=== PATIENT | female | born 1970 | race Caucasian/White ===

== ENCOUNTER 2023-05-06 13:31 | Emergency (ER) | payer OTHER, SELFPAY ==
[2023-05-06] VITALS (20 sets, daily range): BP systolic 95–125; BP diastolic 67–83; PULSE 85–129; RESP 10–30; TEMP 37; O2SAT 93–98; BMI 34.5
--- NOTE | 2023-05-06 14:01 | CT_ITS ---
[address] [address] Patient Name: ARABELLA HAUSER MRN: [id number] date: 1970 Sex: F Assigned Patient Location: ER Current Patient Location: Accession/Order Number: [id number] Exam Date: 05/06/2023 14:30 Report Date: 05/06/2023 15:14 At the request of: GEORGIE ALLAN Procedure: CT abdomen pelvis w con EXAMINATION: CT abdomen pelvis w con HISTORY: generalized abdominal pain ; bilateral lower quadrant pain COMPARISON: No relevant comparison available. TECHNIQUE: Axial, Coronal, and Sagittal images were obtained without and/or with IV contrast as indicated by examination type. Dose reduction techniques were achieved by using automated exposure control and/or adjustment of mA and/or kV according to patient size and/or use of iterative reconstruction technique. FINDINGS: LUNG BASES: No visible pulmonary or pleural disease. LIVER: No enlargement, atrophy, suspicious density, or significant focal lesion. BILIARY: No dilatation or calcification. PANCREAS: No lesion, fluid collection, or abnormal duct dilatation. SPLEEN: No enlargement or focal lesion. ADRENALS: No mass or enlargement. KIDNEYS: No mass, obstruction, or calcification. BOWEL/MESENTERY: No visible mass, obstruction, or bowel wall thickening. Normal appendix. AORTA/VASCULAR: No aneurysm or dissection. RETROPERITONEUM: No mass or adenopathy. LYMPH NODES: No adenopathy. URINARY BLADDER: No visible focal wall thickening, lesion, or calculus. PELVIC ORGANS: 11.1 cm cystic fluid collection with thin rim of surrounding soft tissue within anterior pelvis displacing the uterus, suspected to be ovarian in origin. Adjacent 4.7 cm simple appearing structure, also likely arising from the ovary. Grossly unremarkable uterus. ABDOMINAL WALL: No mass or hernia. BONES: No bony lesion or fracture. OTHER: Negative. CT/CT abdomen pelvis w con IMPRESSION: 1. Large predominantly cystic anterior pelvic structures suspected to represent a ovarian large cyst along with an adjacent large ovarian cyst. Ultrasound evaluation recommended. 2. Normal appearance of the bowel and appendix. Electronically authenticated by: DAMIEN DENIS Date: 05/06/2023 15:14
--- NOTE | 2023-05-06 14:01 | ECG_ITS ---
[facility] Test Date: 2023-05-06 Pat Name: ARABELLA HAUSER Department: Room: - Gender: Female [employer]: : 1970 Requested By: Order Number: [id number] Reading MD: JOSE NARAYAN Measurements Intervals [place] Rate: 77 P: 44 [place]: 146 QRS: 8 QRSD: 82 T: 22 QT: 344 QTc: 376 Interpretive Statements 1100 Sinus rhythm 9110 normal ECG No previous ECG available for comparison Electronically Signed On 05-08-2023 19:52:14 EST by JOSE NARAYAN
--- NOTE | 2023-05-06 14:03 | ED.ABDPAIN1 ---
HPI - Abdominal Pain General Chief Complaint: Abdominal Pain Stated Complaint: ABDOMINAL PAIN Time Seen by Provider: 05/06/23 13:48 Source: patient Mode of arrival: walk-in History of Present Illness HPI narrative: patient developed left lower abdominal pain 2 days ago and since then the pain has become present across the anterior abdomen. No vomiting but has some nausea. No flank pain or urinary symptoms. No fever or chills. No skin rash. Her gave her a laxative but it didn't do much but the pain intensified. PSHx - csection. She still has her GB and appendix and she has never been diagnosed with IBS, Crohn's or UC. Related Data Home Medications Medication Instructions Recorded Confirmed albuterol 90 mcg/actuation aerosol mcg inhalation 05/06/23 inhaler fluticasone propionate 100 1 inh inhalation BID 05/06/23 05/06/23 mcg/actuation blister powder for inhalation (Flovent Diskus) Previous Rx's Medication Instructions Recorded ciprofloxacin HCl 500 mg tablet 500 mg PO BID #13 tabs 05/06/23 (Cipro) hydrocodone 5 mg-acetaminophen 325 1 tab PO Q6H PRN pain #14 tabs 05/06/23 mg tablet Allergies Allergy/AdvReac Type Severity Reaction Status Date / Time No Known Drug Allergies Allergy Verified 05/06/23 13:35 PFSH PFSH Social History Smoking status: Current every day smoker Exam Narrative Exam Narrative: Nurses notes and vital signs reviewed and patient is not hypoxic. afebrile General: Well-appearing and in no apparent distress. Skin: Warm, dry, no pallor noted. No rash. Eye: Pupils are equal, round and EOMI. No scleral icterus. Cardiovascular: Regular Rate and Rhythm without murmur, gallop or rub. Respiratory: No accessory muscle use or respiratory distress. Lungs are clear to auscultation, no wheezing, rales or rhonchi Chest Wall: no tenderness Back: No CVA tenderness Musculoskeletal: normal ROM GI: Abdomen is soft, non-distended. Normal bowel sounds. No masses appreciated. Bilateral lower abdominal tenderness to palpation. No rebound, guarding, or rigidity noted. Neurological: A&O x4. No cranial nerve dysfunction observed. No truncal ataxia. Moves all extremities. Sensation intact. Psychiatric: Cooperative and interactive. Normal mood and affect. Constitutional Vital Signs, click to edit/add: Last Vital Signs Temp 98.6 F 05/06/23 13:35 Pulse 102 H 05/06/23 17:20 Resp 23 05/06/23 17:20 BP 106/67 05/06/23 17:18 Pulse Ox 93 L 05/06/23 17:20 O2 Del Method Room Air 05/06/23 13:35 Course Vital Signs Vital signs: Vital Signs Temperature 98.6 F 05/06/23 13:35 Pulse Rate 129 H 05/06/23 13:35 Respiratory Rate 18 05/06/23 13:35 Blood Pressure 125/83 05/06/23 13:35 Pulse Oximetry 98 05/06/23 13:35 Oxygen Delivery Method Room Air 05/06/23 13:35 Temperature 98.6 F 05/06/23 13:35 Pulse Rate 102 H 05/06/23 17:20 Respiratory Rate 23 05/06/23 17:20 Blood Pressure 106/67 05/06/23 17:18 Pulse Oximetry 93 L 05/06/23 17:20 Oxygen Delivery Method Room Air 05/06/23 13:35 MDM - Abdominal Pain MDM Narrative Medical decision making narrative: peripheral IV established and blood drawn and sent for testing. Urine ordered to be obtained for testing as well. EKG obtained. The patient was ordered to undergo CT scanning of the abdomen pelvis with IV contrast. She received IV Toradol and IV Zofran along with a liter of NS IVF. WBC 16k. Normal electrolytes, renal function and LFTs. UA with leuk est, bacteria and WBCs She was ordered to receive IV Cipro. CT revealed large anterior pelvic structure presumed to be ovarian cyst - US Pelvis was recommended. US revealed two large cystic structures. See detailed reports below. I discussed the findings with the vocational guidance counselor [employer]PERATING TABLE [employer]SEMBLER, Dr Pierre, and we discussed the patient's case. She recommended close but non-emergent follow up with Dr Kennedy for further assessment, probably cyst removal. She agreed with the use of Cipro to control the patient's UTI. The patient and I discussed the findings, diagnosis and plan for treatment and follow up. Discharged with prescriptions for Coldiron and Cipro. Lab Data Attestation: I reviewed the patient's lab results. Labs: Lab Results 05/06/23 05/06/23 Range/Units 13:34 14:24 WBC 16.4 H (4.0-11.0) 10^3/uL RBC 4.77 (4.20-5.40) 10^6/uL Hgb 14.2 (12.0-16.0) g/dL Hct 44.4 (36.0-48.0) % MCV 93.1 (81.0-99.0) fL MCH 29.8 (26.7-34.0) pg MCHC 32.0 (29.9-35.2) g/dL RDW 12.9 (11.0-15.0) % Plt Count 292 (150-450) 10^3/uL MPV 10.2 (9.5-13.5) fL Neut % (Auto) 80.6 H (43.0-75.0) % Lymph % (Auto) 11.4 L (20.5-60.0) % [place] % (Auto) 6.3 (1.7-12.0) % Eos % (Auto) 0.9 (0.9-7.0) % Baso % (Auto) 0.4 (0.2-2.0) % Neut # (Auto) 13.3 H (1.4-6.5) 10^3/uL Lymph # (Auto) 1.9 (1.2-3.8) 10^3/uL [place] # (Auto) 1.0 H (0.3-0.8) 10^3/uL Eos # (Auto) 0.2 (0.0-0.7) 10^3/uL Baso # (Auto) 0.1 (0.0-0.1) 10^3/uL Abs Immat Gran (auto) 0.06 H (0.00-0.03) 10^3/uL Imm/Tot Granulo (auto) 0.4 (0.0-0.5) % Sodium 139 (136-145) mmol/L Potassium 3.5 (3.5-5.1) mmol/L Chloride 102 (98-107) mmol/L Carbon Dioxide 25.6 (21.0-32.0) mmol/L Anion Gap 14.9 BUN 11.0 (7.0-18.0) mg/dL Creatinine 0.80 (0.55-1.02) mg/dL Est GFR ( Amer) >60 (>=60) Est GFR (Non-Af Amer) >60 (>=60) BUN/Creatinine Ratio 13.8 Glucose 86 (74-106) mg/dL Calcium 9.3 (8.5-10.1) mg/dL Total Bilirubin 0.9 (0.2-1.0) mg/dL AST 7 L (15-37) U/L ALT 7 L (14-59) U/L Alkaline Phosphatase 70 (46-116) U/L Total Protein 7.5 (6.4-8.2) g/dL Albumin 3.7 (3.4-5.0) g/dL Globulin 3.8 g/dL Albumin/Globulin Ratio 1.0 Lipase 22.0 (16.0-77.0) U/L Urine Color Lt. yellow (YELLOW) Urine Clarity Sl cloudy (CLEAR) Urine pH 5.5 (5.0-9.0) Ur Specific [place] >=1.030 A (1.005-1.025) Urine Protein Negative (NEG/TRACE) mg/dL Urine Glucose (UA) Negative (NEGATIVE) mg/dL Urine Ketones 40 A (NEGATIVE) mg/dL Urine Occult Blood Trace-i (NEGATIVE) Urine Nitrite Negative (NEGATIVE) Urine Bilirubin Small A (NEGATIVE) Urine Urobilinogen 0.2 (0.2-1.0) EU/dL Ur Leukocyte Esterase Moderate A (NEGATIVE) Urine RBC 2-5 A (0-2) #/HPF Urine WBC 50-75 A (NONE SEEN) #/HPF Ur Squamous Epith Cells Moderate A (NONE/RARE) #/LPF Urine Crystals None seen (None Seen) #/HPF Urine Bacteria Large A (NONE SEEN) #/HPF Urine Casts None seen (NONE SEEN) #/LPF Urine Mucus Small A (NONE SEEN) Ur Culture Indicated? Yes Imaging Data CT scan - abdomen: Attestation: I have reviewed the pertinent imaging results. Radiologist's impression: Patient Name: ARABELLA HAUSER MRN: [id number] date: 1970 Sex: F Assigned Patient Location: ER Current Patient Location: ER Accession/Order Number: [id number] Exam Date: 05/06/2023 14:30 Report Date: 05/06/2023 15:14 At the request of: GEORGIE ALLAN Procedure: CT abdomen pelvis w con EXAMINATION: CT abdomen pelvis w con HISTORY: generalized abdominal pain ; bilateral lower quadrant pain COMPARISON: No relevant comparison available. TECHNIQUE: Axial, Coronal, and Sagittal images were obtained without and/or with IV contrast as indicated by examination type. Dose reduction techniques were achieved by using automated exposure control and/or adjustment of mA and/or kV according to patient size and/or use of iterative reconstruction technique. FINDINGS: LUNG BASES: No visible pulmonary or pleural disease. LIVER: No enlargement, atrophy, suspicious density, or significant focal lesion. BILIARY: No dilatation or calcification. PANCREAS: No lesion, fluid collection, or abnormal duct dilatation. SPLEEN: No enlargement or focal lesion. ADRENALS: No mass or enlargement. KIDNEYS: No mass, obstruction, or calcification. BOWEL/MESENTERY: No visible mass, obstruction, or bowel wall thickening. Normal appendix. AORTA/VASCULAR: No aneurysm or dissection. RETROPERITONEUM: No mass or adenopathy. LYMPH NODES: No adenopathy. URINARY BLADDER: No visible focal wall thickening, lesion, or calculus. PELVIC ORGANS: 11.1 cm cystic fluid collection with thin rim of surrounding soft tissue within anterior pelvis displacing the uterus, suspected to be ovarian in origin. Adjacent 4.7 cm simple appearing structure, also likely arising from the ovary. Grossly unremarkable uterus. ABDOMINAL WALL: No mass or hernia. BONES: No bony lesion or fracture. OTHER: Negative. IMPRESSION: 1. Large predominantly cystic anterior pelvic structures suspected to represent a ovarian large cyst along with an adjacent large ovarian cyst. Ultrasound evaluation recommended. 2. Normal appearance of the bowel and appendix. Electronically authenticated by: DAMIEN DENIS Date: 05/06/2023 15:14 US Pelvis: Attestation: I have reviewed the pertinent imaging results. Radiologist's impression: Patient Name: ARABELLA HAUSER MRN: [id number] date: 1970 Sex: F Assigned Patient Location: ER Current Patient Location: ER Accession/Order Number: [id number] Exam Date: 05/06/2023 15:40 Report Date: 05/06/2023 16:49 At the request of: GEORGIE ALLAN Procedure: US pelvis transvaginal EXAMINATION: US pelvis transvaginal TECHNIQUE: Transvaginal sonography. Grayscale and color flow Doppler imaging. HISTORY: large right ovarian mass. COMPARISON: CT scan 05/06/2023 FINDINGS: Uterus and cervix: Uterus measures 7.3 x 5.3 x 3.5 cm. No focal abnormality. Endometrium: Thickness measures 7.4mm. Endometrial appears grossly unremarkable. Neither ovary is confidently identified. Adnexa: Anterior and cephalad to the uterus there is a 11.6 cm mostly anechoic cystic mass with an adjacent 4.9 cm anechoic cystic mass. Cul-de-sac: Normal, non or minimal free fluid likely physiologic. IMPRESSION: Large mostly anechoic cystic structures anterior and cephalad to the uterus without discrete visualization of normal ovarian tissue. Question large ovarian cyst with or without hydrosalpinx. Other benign or malignant neoplastic processes cannot be excluded. Torsion cannot be excluded on the basis of this examination. Electronically authenticated by: DIPESH MORENO Date: 05/06/2023 16:49 ECG Data Attestation: I personally reviewed and interpreted this ECG as follows: Interpretation: EKG interpretation: Emergency Department physician interpretation. Normal sinus rhythm at 77bpm. Normal axis, normal intervals and no ST segment elevation or depression. Normal EKG. Discharge Plan Discharge Chief Complaint: Abdominal Pain Clinical Impression: Ovarian cyst, Abdominal pain Patient Disposition: Home, Self-Care Time of Disposition Decision: 17:19 Prescriptions / Home Meds: New hydrocodone-acetaminophen 5-325 mg tablet 1 tab PO Q6H PRN (Reason: pain) Qty: 14 0RF ciprofloxacin HCl [Cipro] 500 mg tablet 500 mg PO BID Qty: 13 0RF No Action Flovent Diskus 100 mcg/actuation blister with device 1 inh inhalation BID albuterol 90 mcg/actuation aerosol inhalation Instructions: Ovarian Cyst (ED), Abdominal Pain (ED) Stand Alone Forms: Portal Instructions Referrals: Hakeem Kennedy DO [Physician] - As soon as possible Discharge Date/Time: 05/06/23 17:38
[2023-05-06 14:08] LABS: Basophils Absolute Auto 0.1 10^3/uL (0.0-0.1); Basophils Percent Auto 0.4 % (0.2-2.0); Eosinophils Absolute Auto 0.2 10^3/uL (0.0-0.7); Eosinophils Percent Auto 0.9 % (0.9-7.0); Hematocrit 44.4 % (36.0-48.0); Hemoglobin 14.2 g/dL (12.0-16.0); Immature Granulocytes Abs Auto 0.06 10^3/uL (0.00-0.03); Immature Granulocytes Pct Auto 0.4 % (0.0-0.5); Lymphocytes Absolute Auto 1.9 10^3/uL (1.2-3.8); Lymphocytes Percent Auto 11.4 % (20.5-60.0); Mean Corpuscular Hemoglobin 29.8 pg (26.7-34.0); Mean Corpuscular Volume 93.1 fL (81.0-99.0); Mean Platelet Volume 10.2 fL (9.5-13.5); Monocytes Percent Auto 6.3 % (1.7-12.0); Neutrophils Absolute Auto 13.3 10^3/uL (1.4-6.5); Neutrophils Percent Auto 80.6 % (43.0-75.0); Platelet Count 292 10^3/uL (150-450); Red Blood Count 4.77 10^6/uL (4.20-5.40); Red Cell Distribution Width 12.9 % (11.0-15.0); White Blood Count 16.4 10^3/uL (4.0-11.0)
[2023-05-06] MEDS: KETOROLAC TROMETHAMINE 30 MG/ML VIAL IVP (14:18)
[2023-05-06] MEDS: ONDANSETRON PF 4 MG/2 ML VIAL IV (14:18)
[2023-05-06] MEDS: 0.9 % SODIUM CHLORIDE 1,000 ML 999 ML IV (14:18)
[2023-05-06 14:22] LABS: Alanine Aminotransferase 7 U/L (14-59); Albumin Level 3.7 g/dL (3.4-5.0); Alkaline Phosphatase 70 U/L (46-116); Anion Gap 14.9; Aspartate Amino Transferase 7 U/L (15-37); BUN Creatinine Ratio 13.8; Bilirubin Total 0.9 mg/dL (0.2-1.0); Calcium 9.3 mg/dL (8.5-10.1); Carbon Dioxide 25.6 mmol/L (21.0-32.0); Chloride 102 mmol/L (98-107); Estimated GFR (African America >60 (>=60); Estimated GFR (Non-African Ame >60 (>=60); Globulin 3.8 g/dL; Glucose 86 mg/dL (74-106); Potassium 3.5 mmol/L (3.5-5.1); Sodium 139 mmol/L (136-145); Total Protein 7.5 g/dL (6.4-8.2)
[2023-05-06 14:40] LABS: Bilirubin Urine SMALL (NEGATIVE); Blood Urine TRACE-I (NEGATIVE); Clarity Urine SL CLOUDY (CLEAR); Color Urine LT. YELLOW (YELLOW); Glucose Urine UA NEGATIVE (NEGATIVE); Ketones Urine 40 mg/dL (NEGATIVE); Leukocyte Esterase Urine MODERATE (NEGATIVE); Nitrite Urine NEGATIVE (NEGATIVE); Protein Urine NEGATIVE (NEG/TRACE); Specific Gravity Urine >=1.030 (1.005-1.025); Urobilinogen Urine 0.2 EU/dL (0.2-1.0); pH Urine 5.5 (5.0-9.0)
[2023-05-06 14:45] LABS: Urine Microscopic Indicated YES
[2023-05-06 14:48] LABS: Bacteria Urine LARGE #/HPF (NONE SEEN); Cast Seen? NONE SEEN #/LPF (NONE SEEN); Crystals Seen? None Seen #/HPF (None Seen); Mucus Urine SMALL (NONE SEEN); Squamous Epithelial Cell Urine MODERATE #/LPF (NONE/RARE); Urine Culture Indicated YES; WBC Urine 50-75 #/HPF (NONE SEEN)
--- NOTE | 2023-05-06 15:20 | US_ITS ---
The [address] [address] Patient Name: ARABELLA HASUER MRN: [id number] date: 1970 Sex: F Assigned Patient Location: ER Current Patient Location: Accession/Order Number: [id number] Exam Date: 05/06/2023 15:40 Report Date: 05/06/2023 16:49 At the request of: GEORGIE ALLAN Procedure: US pelvis transvaginal EXAMINATION: US pelvis transvaginal TECHNIQUE: Transvaginal sonography. Grayscale and color flow Doppler imaging. HISTORY: large right ovarian mass. COMPARISON: CT scan 05/06/2023 FINDINGS: Uterus and cervix: Uterus measures 7.3 x 5.3 x 3.5 cm. No focal abnormality. Endometrium: Thickness measures 7.4mm. Endometrial appears grossly unremarkable. Neither ovary is confidently identified. Adnexa: Anterior and cephalad to the uterus there is a 11.6 cm mostly anechoic cystic mass with an adjacent 4.9 cm anechoic cystic mass. Cul-de-sac: Normal, non or minimal free fluid likely physiologic. US/US pelvis transvaginal IMPRESSION: Large mostly anechoic cystic structures anterior and cephalad to the uterus without discrete visualization of normal ovarian tissue. Question large ovarian cyst with or without hydrosalpinx. Other benign or malignant neoplastic processes cannot be excluded. Torsion cannot be excluded on the basis of this examination. Electronically authenticated by: DIPESH MORENO Date: 05/06/2023 16:49
[2023-05-06] MEDS: CIPROFLOXACIN IN 5 % DEXTROSE 400 MG/200 ML PIGGYBACK 200 MG IV (16:14)
[2023-05-06] MEDS: HYDROCODONE/ACET 5-325 MG TABLET 1 TAB PO (17:32)
== END 2023-05-06 17:38 | disposition home or self-care (01) ==
PROVIDERS: Emergency Provider Emergency Medicine
DX: R10.9 Unspecified abdominal pain (principal); N83.209 Unspecified ovarian cyst, unspecified side; N39.0 Urinary tract infection, site not specified; Z79.899 Other long term (current) drug therapy; F17.210 Nicotine dependence, cigarettes, uncomplicated
CPT/HCPCS: 36415; 74177; 76830; 80053; 81001; 83690; 85025; 87086; 93005; 96365; 96375; 99285; Q9967